=== PATIENT | female | born 1945 | race Caucasian/White ===

== ENCOUNTER → 2021-08-28 | Outpatient (CLI) | payer OTHER, MEDICARE | LOC: SJCVC 10:00 | PROVIDERS: ATTEND Internal Medicine | DX: I38 Endocarditis, valve unspecified (principal); R01.1 Cardiac murmur, unspecified; E78.5 Hyperlipidemia, unspecified; M79.602 Pain in left arm; M81.0 Age-related osteoporosis without current pathological fracture; Z79.899 Other long term (current) drug therapy; Z72.89 Other problems related to lifestyle ==

== ENCOUNTER → 2021-08-30 | Outpatient (CLI) | payer OTHER, MEDICARE | LOC: SJCVCIMAG 10:02 | PROVIDERS: ATTEND Internal Medicine | DX: I08.3 Combined rheumatic disorders of mitral, aortic and tricuspid valves (principal) ==